=== PATIENT | female | born 1945 | race Hispanic/Latino ===

== ENCOUNTER 2016-08-31 08:24 | Outpatient (CLI) | payer MEDICARE ==
--- NOTE | 2016-08-31 13:05 | Mammography Report ---
BILATERAL DIGITAL SCREENING MAMMOGRAM with CAD: 08/31/16 08:24:00 CLINICAL: Routine screening. COMPARISON:07/08/15 FINDINGS: The breasts are heterogeneously dense, which may obscure small masses. A few bilateral benign calcifications. No mass, architectural distortion or suspicious calcifications. IMPRESSION: No mammographic evidence of malignancy. BI-RADS CATEGORY: 2 -- Benign RECOMMENDATION: Routine mammographic screening in one year. COMMENT: Patient follow-up letters are generated by our [employer] application.
== END 2016-08-31 08:25 | disposition home or self-care (01) ==
LOC: SPVWC 08:24
PROVIDERS: ATTEND Internal Medicine
DX: Z12.31 Encounter for screening mammogram for malignant neoplasm of breast (principal)
CPT/HCPCS: 77067; G0202

== ENCOUNTER 2019-04-10 09:46 | Outpatient (CLI) | payer MEDICARE ==
--- NOTE | 2019-04-13 14:05 | Mammography Report ---
DIGITAL SCREENING MAMMOGRAM WITH CAD, 04/10/2019 INDICATION: Routine screening mammography. TECHNIQUE: Digital bilateral 2D mammography was obtained in the craniocaudal and mediolateral obliq ue projections. This examination was interpreted with the benefit of Computer-Aided Detection analysi s. COMPARISON: 08/31/2016 and 07/08/2015 FINDINGS: Breast Density: There are scattered areas of fibroglandular density. A right upper inner focal asymmetry requires additional imaging. No architectural distortion or suspi cious calcifications. Scattered bilateral benign calcifications. There is no evidence of dominant mas s, suspicious calcifications or architectural distortion in the left breast. IMPRESSION: Right focal asymmetry requiring additional imaging. Recommend recall for right lateral an d spot compression MLO and CC views and right breast ultrasound if needed. Follow up recommendation: Special View: Spot Category 0: Incomplete. Needs additional imaging evaluation and/or prior mammograms for comparison. A "normal" or negative report should not discourage follow up or biopsy of a clinically significant f inding. A written summary of these findings will be mailed to the patient. The patient will be entered into a mammography reporting system which will generate a reminder letter for the patient's next appointmen t at the appropriate interval. The [employer] recommends yearly mammograms starting at age 40 and continuing as l juan jose as a woman is in good health. Breast MRI is recommended for women with an approximate 20-25% or greater lifetime risk of breast cancer, including women with a strong family history of breast or ova sylvia cancer or who have been treated for Hodgkin's disease. Signer Name: Omi Pablo MD Signed: 04/13/2019 2:01 PM Workstation Name: [id number]
== END 2019-04-10 09:47 | disposition home or self-care (01) ==
LOC: SPVWC 09:46
PROVIDERS: ATTEND Internal Medicine
DX: Z12.31 Encounter for screening mammogram for malignant neoplasm of breast (principal)
CPT/HCPCS: 77067

== ENCOUNTER 2019-05-07 08:16 | Outpatient (CLI) | payer MEDICARE ==
--- NOTE | 2019-05-07 10:50 | Mammography Report ---
RIGHT DIGITAL DIAGNOSTIC MAMMOGRAM WITH CAD 05/07/2019 RIGHT LIMITED BREAST ULTRASOUND INDICATION: Recalled for a right inner mammographic asymmetry. F/U abnormal mammogram TECHNIQUE: Digital right mammographic imaging was performed. Spot compression views were obtained. L imited ultrasound was performed. This examination was interpreted with the benefit of Computer-Aided Detection (CAD) analysis. COMPARISON: 04/10/2019 screening mammogram. FINDINGS: Breast Density: There are scattered areas of fibroglandular density. MAMMOGRAPHIC FINDINGS: Spot compression MLO and CC views demonstrate a persistent upper inner posteri or oval density with indistinct margins. It is not identified on the lateral view. ULTRASOUND FINDINGS: Targeted ultrasound evaluation was performed of the area of interest. Ultrasou nd of the right breast demonstrated a relatively anechoic skin lesion at 1:00 13 cm from the nipple m easuring 9 x 3 x 8 mm. The skin is mildly thickened at the site and the patient says that she occasio shiloh expresses material from it. The skin lesion correlates with the mammographic density. IMPRESSION: A benign 9 mm sebaceous cyst or epidermal inclusion cyst right breast at 1:00 13 cm from the nipple. Recommend routine mammographic screening. Follow up recommendation: Routine yearly BI-RADS Category 2: Benign. A "normal" or negative report should not discourage follow up or biopsy of a clinically significant f inding. A written summary of these findings will be mailed to the patient. The patient will be entered into a mammography reporting system which will generate a reminder letter for the patient's next appointmen t at the appropriate interval. According to the [employer], yearly mammograms are recommended starting at age 40 and continuing as long as a woman is in good health. Breast MRI is recommended for women with an richa roximately 20-25% or greater lifetime risk of breast cancer, including women with a strong family his tory of breast or ovarian cancer and women who have been treated for Hodgkin's disease. Signer Name: Omi Pablo MD Signed: 05/07/2019 10:45 AM Workstation Name: [id number]
== END 2019-05-07 08:17 | disposition home or self-care (01) ==
LOC: SPVWC 08:16
PROVIDERS: ATTEND Internal Medicine
DX: N60.01 Solitary cyst of right breast (principal); N64.89 Other specified disorders of breast

== ENCOUNTER 2019-06-18 20:58 | Observation (INO) | payer MEDICARE ==
--- NOTE | 2019-06-18 21:30 | Emergency Department Report ---
ED Neuro Deficit HPI - General Chief Complaint: Altered Mental Status Stated Complaint: AMS Time Seen by Provider: 06/18/19 21:09 Source: family, EMS Mode of arrival: Stretcher Limitations: Altered Mental Status - History of Present Illness Initial Comments: Patient is 73 years old female with history of borderline diabetes. Patient brought to the emergency room via EMS from home for evaluation of altered mental status. Patient accompanied by her son. Patient son stated that approximately 1-1/2 hours ago patient found on the floor confused and unable to stand up. Unknown time of onset. Upon arrival to the ER patient is alert but confused. Patient has obvious left lower extremity drift. Stroke protocol immediately initiated. Patient moved to CT scanner and telemetry neurology consulted immediately. -: Sudden Location: left leg, altered Presenting Symptoms: Present: Weak/Paralyzed One Side, Altered Mental Status History of same: No Place: home Severity: moderate Quality: weak Context: sudden onset - Related Data Allergies/Adverse Reactions: Allergies Allergy/AdvReac Type Severity Reaction Status Date / Time No Known Allergies Allergy Unverified 06/18/19 21:14 ED Review of Systems ROS: Stated complaint: AMS Other details as noted in HPI Comment: Unobtainable due to pts medical conditions ED Past Medical Hx - Past Medical History Previous Medical History?: Yes Hx Hypertension: Yes Hx Diabetes: Yes ED Neuro Physical Exam - General Limitations: Altered Mental Status General appearance: alert, in no apparent distress Suspected Stroke: Yes - Head Head exam: Present: atraumatic, normocephalic, normal inspection - Eye Eye exam: Present: normal appearance, PERRL - ENT ENT exam: Present: normal exam, normal orophraynx, mucous membranes moist - Neck Neck exam: Present: normal inspection, full ROM. Absent: tenderness, menin gismus, lymphadenopathy, thyromegaly - Respiratory Respiratory exam: Present: normal lung sounds bilaterally - Cardiovascular Cardiovascular Exam: Present: regular rate, normal rhythm, normal heart sounds - GI/Abdominal GI/Abdominal exam: Present: soft, normal bowel sounds. Absent: distended, tenderness, guarding, rebound, rigid, organomegaly, mass, bruit, pulsatile mass, hernia - Extremities Exam Extremities exam: Present: normal inspection, full ROM, normal capillary refill - Back Exam Back exam: Present: normal inspection, full ROM. Absent: CVA tenderness (R), CVA tenderness (L) - Neurological Exam Neurological exam: Present: alert, altered - NIHSS Assessment Interval: Baseline 1a. Level of Consciousness: alert/keenly responsive 1b. LOC Questions: answers no questions correctly 1c. LOC Commands: performs 1 task correctly 2. Best Gaze: partial gaze palsy 3. Visual: no visual loss 4. Facial Palsy: normal symmetrical movement 5b. Motor Arm Right: no drift 5a. Motor Arm Left: no drift 6a. Motor Leg Left: some gravity effort 6b. Motor Leg Right: some gravity effort 7. Limb Ataxia: absent 8. Sensory: normal 9. Best Language: no aphasia 10. Dysarthria: normal 11. Extinction/Inattention: no abnormality Total Score: 8 Stroke Severity: Moderate Stroke - Skin Skin exam: Present: warm, intact, normal color ED Course Vital Signs 06/18/19 06/18/19 06/18/19 21:05 21:16 21:33 Temperature 101.6 F H Pulse Rate 119 H 105 H Respiratory 21 Rate Blood Pressure 111/92 111/92 O2 Sat by Pulse 96 95 Oximetry 06/18/19 06/18/19 06/18/19 21:46 22:00 22:06 Temperature Pulse Rate 101 H 96 H 94 H Respiratory 15 16 11 L Rate Blood Pressure 142/54 166/82 111/92 O2 Sat by Pulse 95 94 94 Oximetry 06/18/19 06/18/19 06/18/19 22:16 22:30 22:46 Temperature Pulse Rate 95 H 75 76 Respiratory 21 12 24 Rate Blood Pressure 137/82 137/82 143/65 O2 Sat by Pulse 96 92 95 Oximetry 06/18/19 06/18/19 06/18/19 23:00 23:26 23:30 Temperature Pulse Rate 115 H Respiratory 15 Rate Blood Pressure 143/65 125/86 125/86 O2 Sat by Pulse 96 94 93 Oximetry 06/18/19 06/19/19 06/19/19 23:46 00:00 00:16 Temperature Pulse Rate Respiratory 14 15 19 Rate Blood Pressure 143/67 143/67 109/75 O2 Sat by Pulse 97 93 94 Oximetry - Lab Data Result diagrams: 06/18/19 21:39 06/18/19 21:39 Lab Results 06/18/19 06/18/19 06/18/19 Range/Units 21:39 21:39 21:39 WBC 14.6 H (4.5-11.0) K/mm3 RBC 4.63 (3.65-5.03) M/mm3 Hgb 14.8 H (10.1-14.3) gm/dl Hct 43.7 H (30.3-42.9) % MCV 94 (79-97) fl MCH 32 (28-32) pg MCHC 34 (30-34) % RDW 12.7 L (13.2-15.2) % Plt Count 258 (140-440) K/mm3 Add Manual Diff Complete Total Counted 100 Seg Neutrophils % Family Physician Seg Neuts % (Manual) 95.0 H (40.0-70.0) % Band Neutrophils % 0 % Lymphocytes % (Manual) 4.0 L (13.4-35.0) % Reactive Lymphs % (Man) 0 % Monocytes % (Manual) 1.0 (0.0-7.3) % Eosinophils % (Manual) 0 (0.0-4.3) % Basophils % (Manual) 0 (0.0-1.8) % Metamyelocytes % 0 % Myelocytes % 0 % Promyelocytes % 0 % Blast Cells % 0 % Nucleated RBC % Not Reportable Seg Neutrophils # Man 13.9 H (1.8-7.7) K/mm3 Band Neutrophils # 0.0 K/mm3 Lymphocytes # (Manual) 0.6 L (1.2-5.4) K/mm3 Abs React Lymphs (Man) 0.0 K/mm3 Monocytes # (Manual) 0.1 (0.0-0.8) K/mm3 Eosinophils # (Manual) 0.0 (0.0-0.4) K/mm3 Basophils # (Manual) 0.0 (0.0-0.1) K/mm3 Metamyelocytes # 0.0 K/mm3 Myelocytes # 0.0 K/mm3 Promyelocytes # 0.0 K/mm3 Blast Cells # 0.0 K/mm3 WBC Morphology Not Reportable Hypersegmented Neuts Not Reportable Hyposegmented Neuts Not Reportable Hypogranular Neuts Not Reportable Smudge Cells Not Reportable Toxic Granulation Not Reportable Toxic Vacuolation Not Reportable Dohle Bodies Not Reportable Pelger-Huet Anomaly Not Reportable John Rods Not Reportable Platelet Estimate Consistent w auto Clumped Platelets Not Reportable Plt Clumps, EDTA Not Reportable Large Platelets Not Reportable Giant Platelets Not Reportable Platelet Satelliting Not Reportable Plt Morphology Comment Not Reportable RBC Morphology Normal Dimorphic RBCs Not Reportable Polychromasia Not Reportable Hypochromasia Not Reportable Poikilocytosis Not Reportable Anisocytosis Not Reportable Microcytosis Not Reportable Macrocytosis Not Reportable Spherocytes Not Reportable Pappenheimer Bodies Not Reportable Sickle Cells Not Reportable Target Cells Not Reportable Tear Drop Cells Not Reportable Ovalocytes Not Reportable Helmet Cells Not Reportable [place] Bodies Not Reportable [place] Rings Not Reportable [place] Cells Not Reportable Bite Cells Not Reportable Crenated Cell Not Reportable Elliptocytes Not Reportable Acanthocytes (Spur) Not Reportable Rouleaux Not Reportable Hemoglobin C Crystals Not Reportable Schistocytes Not Reportable Malaria parasites Not Reportable Justino Bodies Not Reportable Hem Pathologist Commnt No PT 13.4 (12.2-14.9) Sec. INR 1.01 (0.87-1.13) APTT 27.9 (24.2-36.6) Sec. Thrombin Time 16.1 (15.1-19.6) Sec. Sodium 136 L (137-145) mmol/L Potassium 3.6 (3.6-5.0) mmol/L Chloride 90.6 L (98-107) mmol/L Carbon Dioxide 23 (22-30) mmol/L Anion Gap 26 mmol/L BUN 15 (7-17) mg/dL Creatinine 0.6 L (0.7-1.2) mg/dL Estimated GFR > 60 ml/min BUN/Creatinine Ratio 25 % Glucose 254 H (65-100) mg/dL POC Glucose (70-105) Calcium 9.7 (8.4-10.2) mg/dL Total Creatine Kinase 63 (30-135) units/L CK-MB (CK-2) 1.4 (0.0-4.0) ng/mL CK-MB (CK-2) Rel Index 2.2 (0-4) Troponin T < 0.010 (0.00-0.029) ng/mL Urine Color (Yellow) Urine Turbidity (Clear) Urine pH (5.0-7.0) Ur Specific [place] (1.003-1.030) Urine Protein (Negative) mg/dL Urine Glucose (UA) (Negative) mg/dL Urine Ketones (Negative) mg/dL Urine Blood (Negative) Urine Nitrite (Negative) Urine Bilirubin (Negative) Urine Urobilinogen (<2.0) mg/dL Ur Leukocyte Esterase (Negative) Urine WBC (Auto) (0.0-6.0) /HPF Urine RBC (Auto) (0.0-6.0) /HPF Urine Opiates Screen Urine Methadone Screen Ur Barbiturates Screen Ur Phencyclidine Scrn Ur Amphetamines Screen U Benzodiazepines Scrn Urine Cocaine Screen U Marijuana (THC) Screen Drugs of Abuse Note Plasma/Serum Alcohol (0-0.07) % 06/18/19 06/18/19 06/18/19 Range/Units 21:39 22:17 22:23 WBC (4.5-11.0) K/mm3 RBC (3.65-5.03) M/mm3 Hgb (10.1-14.3) gm/dl Hct (30.3-42.9) % MCV (79-97) fl MCH (28-32) pg MCHC (30-34) % RDW (13.2-15.2) % Plt Count (140-440) K/mm3 Add Manual Diff Total Counted Seg Neutrophils % Seg Neuts % (Manual) (40.0-70.0) % Band Neutrophils % % Lymphocytes % (Manual) (13.4-35.0) % Reactive Lymphs % (Man) % Monocytes % (Manual) (0.0-7.3) % Eosinophils % (Manual) (0.0-4.3) % Basophils % (Manual) (0.0-1.8) % Metamyelocytes % % Myelocytes % % Promyelocytes % % Blast Cells % % Nucleated RBC % Seg Neutrophils # Man (1.8-7.7) K/mm3 Band Neutrophils # K/mm3 Lymphocytes # (Manual) (1.2-5.4) K/mm3 Abs React Lymphs (Man) K/mm3 Monocytes # (Manual) (0.0-0.8) K/mm3 Eosinophils # (Manual) (0.0-0.4) K/mm3 Basophils # (Manual) (0.0-0.1) K/mm3 Metamyelocytes # K/mm3 Myelocytes # K/mm3 Promyelocytes # K/mm3 Blast Cells # K/mm3 WBC Morphology Hypersegmented Neuts Hyposegmented Neuts Hypogranular Neuts Smudge Cells Toxic Granulation Toxic Vacuolation Dohle Bodies Pelger-Huet Anomaly John Rods Platelet Estimate Clumped Platelets Plt Clumps, EDTA Large Platelets Giant Platelets Platelet Satelliting Plt Morphology Comment RBC Morphology Dimorphic RBCs Polychromasia Hypochromasia Poikilocytosis Anisocytosis Microcytosis Macrocytosis Spherocytes Pappenheimer Bodies Sickle Cells Target Cells Tear Drop Cells Ovalocytes Helmet Cells Darby-[place] Bodies [place] Rings Fabiana Cells Bite Cells Crenated Cell Elliptocytes Acanthocytes (Spur) Rouleaux Hemoglobin C Crystals Schistocytes Malaria parasites Justino Bodies Hem Pathologist Commnt PT (12.2-14.9) Sec. INR (0.87-1.13) APTT (24.2-36.6) Sec. Thrombin Time (15.1-19.6) Sec. Sodium (137-145) mmol/L Potassium (3.6-5.0) mmol/L Chloride (98-107) mmol/L Carbon Dioxide (22-30) mmol/L Anion Gap mmol/L BUN (7-17) mg/dL Creatinine (0.7-1.2) mg/dL Estimated GFR ml/min BUN/Creatinine Ratio % Glucose (65-100) mg/dL POC Glucose 219 H (70-105) Calcium (8.4-10.2) mg/dL Total Creatine Kinase (30-135) units/L CK-MB (CK-2) (0.0-4.0) ng/mL CK-MB (CK-2) Rel Index (0-4) Troponin T (0.00-0.029) ng/mL Urine Color Straw (Yellow) Urine Turbidity Clear (Clear) Urine pH 7.0 (5.0-7.0) Ur Specific [place] 1.014 (1.003-1.030) Urine Protein 100 mg/dl (Negative) mg/dL Urine Glucose (UA) >=500 (Negative) mg/dL Urine Ketones 80 (Negative) mg/dL Urine Blood Sm (Negative) Urine Nitrite Neg (Negative) Urine Bilirubin Neg (Negative) Urine Urobilinogen < 2.0 (<2.0) mg/dL Ur Leukocyte Esterase Neg (Negative) Urine WBC (Auto) 1.0 (0.0-6.0) /HPF Urine RBC (Auto) 9.0 (0.0-6.0) /HPF Urine Opiates Screen Urine Methadone Screen Ur Barbiturates Screen Ur Phencyclidine Scrn Ur Amphetamines Screen U Benzodiazepines Scrn Urine Cocaine Screen U Marijuana (THC) Screen Drugs of Abuse Note Plasma/Serum Alcohol < 0.01 (0-0.07) % 06/18/19 Range/Units 22:23 WBC (4.5-11.0) K/mm3 RBC (3.65-5.03) M/mm3 Hgb (10.1-14.3) gm/dl Hct (30.3-42.9) % MCV (79-97) fl MCH (28-32) pg MCHC (30-34) % RDW (13.2-15.2) % Plt Count (140-440) K/mm3 Add Manual Diff Total Counted Seg Neutrophils % Seg Neuts % (Manual) (40.0-70.0) % Band Neutrophils % % Lymphocytes % (Manual) (13.4-35.0) % Reactive Lymphs % (Man) % Monocytes % (Manual) (0.0-7.3) % Eosinophils % (Manual) (0.0-4.3) % Basophils % (Manual) (0.0-1.8) % Metamyelocytes % % Myelocytes % % Promyelocytes % % Blast Cells % % Nucleated RBC % Seg Neutrophils # Man (1.8-7.7) K/mm3 Band Neutrophils # K/mm3 Lymphocytes # (Manual) (1.2-5.4) K/mm3 Abs React Lymphs (Man) K/mm3 Monocytes # (Manual) (0.0-0.8) K/mm3 Eosinophils # (Manual) (0.0-0.4) K/mm3 Basophils # (Manual) (0.0-0.1) K/mm3 Metamyelocytes # K/mm3 Myelocytes # K/mm3 Promyelocytes # K/mm3 Blast Cells # K/mm3 WBC Morphology Hypersegmented Neuts Hyposegmented Neuts Hypogranular Neuts Smudge Cells Toxic Granulation Toxic Vacuolation Dohle Bodies Pelger-Huet Anomaly John Rods Platelet Estimate Clumped Platelets Plt Clumps, EDTA Large Platelets Giant Platelets Platelet Satelliting Plt Morphology Comment RBC Morphology Dimorphic RBCs Polychromasia Hypochromasia Poikilocytosis Anisocytosis Microcytosis Macrocytosis Spherocytes Pappenheimer Bodies Sickle Cells Target Cells Tear Drop Cells Ovalocytes Helmet Cells Darby-[place] Bodies [place] Rings [place] Cells Bite Cells Crenated Cell Elliptocytes Acanthocytes (Spur) Rouleaux Hemoglobin C Crystals Schistocytes Malaria parasites Justino Bodies Hem Pathologist Commnt PT (12.2-14.9) Sec. INR (0.87-1.13) APTT (24.2-36.6) Sec. Thrombin Time (15.1-19.6) Sec. Sodium (137-145) mmol/L Potassium (3.6-5.0) mmol/L Chloride (98-107) mmol/L Carbon Dioxide (22-30) mmol/L Anion Gap mmol/L BUN (7-17) mg/dL Creatinine (0.7-1.2) mg/dL Estimated GFR ml/min BUN/Creatinine Ratio % Glucose (65-100) mg/dL POC Glucose (70-105) Calcium (8.4-10.2) mg/dL Total Creatine Kinase (30-135) units/L CK-MB (CK-2) (0.0-4.0) ng/mL CK-MB (CK-2) Rel Index (0-4) Troponin T (0.00-0.029) ng/mL Urine Color (Yellow) Urine Turbidity (Clear) Urine pH (5.0-7.0) Ur Specific [place] (1.003-1.030) Urine Protein (Negative) mg/dL Urine Glucose (UA) (Negative) mg/dL Urine Ketones (Negative) mg/dL Urine Blood (Negative) Urine Nitrite (Negative) Urine Bilirubin (Negative) Urine Urobilinogen (<2.0) mg/dL Ur Leukocyte Esterase (Negative) Urine WBC (Auto) (0.0-6.0) /HPF Urine RBC (Auto) (0.0-6.0) /HPF Urine Opiates Screen Presumptive negative Urine Methadone Screen Presumptive negative Ur Barbiturates Screen Presumptive negative Ur Phencyclidine Scrn Presumptive negative Ur Amphetamines Screen Presumptive negative U Benzodiazepines Scrn Presumptive negative Urine Cocaine Screen Presumptive negative U Marijuana (THC) Screen Presumptive negative Drugs of Abuse Note Disclamer Plasma/Serum Alcohol (0-0.07) % - EKG Data -: EKG Interpreted by [place] EKG shows normal: sinus rhythm Rate: normal Interpretation: no acute changes - Radiology Data Radiology results: report reviewed - Medical Decision Making Patient is 73 years old female with history of borderline diabetes. Patient brought to the emergency room via EMS from home for evaluation of altered mental status. Patient accompanied by her son. Patient son stated that approximately 1-1/2 hours ago patient found on the floor confused and unable to stand up. Unknown time of onset. Upon arrival to the ER patient is alert but confused. Patient has obvious left lower extremity drift. Stroke protocol immediately initiated. Patient moved to CT scanner and telemetry neurology consulted immediately. CT brain is negative for acute finding. Patient is not a TPA candidate secondary to unknown time of onset. CTA neck and head showed no evidence of l arge vessels occlusion. Dr. Montoya from tele-neurology, advised that patient need to be admitted to the hospital for stroke work-up and further management. I discussed the patient with Dr. Ni, he agreed to admit the patient to medical service for further management. Critical Care Time: Yes Critical care time in (mins) excluding proc time.: 30 Critical care attestation.: If time is entered above; I have spent that time in minutes in the direct care of this critically ill patient, excluding procedure time. ED Disposition Clinical Impression: Left leg weakness, CVA (cerebral vascular accident) Disposition: -09 OP ADMIT IP TO THIS HOSP Is pt being admited?: Yes Condition: Stable Referrals: PRIMARY CARE, [Primary Care Provider] - 3-5 Days
--- NOTE | 2019-06-18 21:42 | Emergency Department Report ---
ED Neuro Deficit HPI - General Chief Complaint: Altered Mental Status Stated Complaint: AMS Time Seen by Provider: 06/18/19 21:09 Source: family, EMS Mode of arrival: Stretcher Limitations: Altered Mental Status - History of Present Illness Initial Comments: [facility] Date of Service: 06/18/2019 21:22:01 Impression: RO Acute Ischemic Stroke Comments: acute onset confusion, right gaze preference, and left leg weakness - concerning for R hemisphere stroke, though exam is poor due to confusion/delirium, which would not be accounted for by a stroke. Recommend CTA head/neck. Outside tpa window. Mechanism of Stroke: Possible Thromboembolic Possible Cardioembolic Small Vessel Disease Metrics: Last Known Well: Unknown [facility] Notification Time: 06/18/2019 21:21:34 Arrival Time: 06/18/2019 20:58:00 Stamp Time: 06/18/2019 21:22:01 Time First Login Attempt: 06/18/2019 21:29:55 Video Start Time: 06/18/2019 21:29:55 Symptoms: AMS NIHSS Start Assessment Time: 06/18/2019 21:35:05 Patient is not a candidate for tPA. Patient was not deemed candidate for tPA thrombolytics because of Last Well Known Above 4.5 Hours. Video End Time: 06/18/2019 21:40:04 CT head showed no acute hemorrhage or acute core infarct. CT head was reviewed. Lower Likelihood of Large Vessel Occlusion but Following Stat Studies are Recommended CTA Head and Neck. ED Physician notified of diagnostic impression and management plan on 06/18/2019 21:40:03 Our recommendations are outlined below. Recommendations: Activate Stroke Protocol Admission/Order Set Stroke/Telemetry Floor Neuro Checks Bedside Swallow Eval DVT Prophylaxis IV Fluids, Normal Saline Head of Bed Below 30 Degrees Euglycemia and Avoid Hyperthermia (PRN Acetaminophen) start ASA if CT head is neg for hemorrhage. Recommended Scan: MRI Head Lipid Panel to Be Obtained, if Not Done in the Last Three Months Therapies: Physical Therapy, Occupational Therapy, Speech Therapy Assessment When Applicable Dysphaghia Screen: Swallow Evaluation, Bedside NPO Until Swallow Evaluation DVT prophylaxis: Lovenox or LMW Heparin Disposition: Follow up with Teleneurology Follow up Sign Out: Discussed with Emergency Department Provider History of Present Illness: Patient is a 73 year old Female. Patient was brought by EMS for symptoms of AMS 73 yo woman with acute onset confusion and AMS. This was noted today during lunch at her christianity. No LOC/convulsion noted. Unclear LSN time. ?L sided weakness noted by the ED. No blood thinners. CT head showed no acute hemorrhage or acute core infarct. CT head was reviewed. Examination: 1A: Level of Consciousness - Alert; keenly responsive + 0 1B: Ask Month and Age - Both Questions Right + 0 1C: Blink Eyes & Squeeze Hands - Performs Both Tasks + 0 2: Test Horizontal Extraocular Movements - Partial Gaze Palsy: Can Be Overcome + 1 3: Test Visual Pierce - No Visual Loss + 0 4: Test Facial Palsy (Use Grimace if Obtunded) - Normal symmetry + 0 5A: Test Left Arm Motor Drift - No Drift for 10 Seconds + 0 5B: Test Right Arm Motor Drift - No Drift for 10 Seconds + 0 6A: Test Left Leg Motor Drift - Some Effort Against Montgomery + 2 6B: Test Right Leg Motor Drift - Some Effort Against Montgomery + 2 7: Test Limb Ataxia (FNF/Heel-Orr) - No Ataxia + 0 8: Test Sensation - Normal; No sensory loss + 0 9: Test Language/Aphasia - Severe Aphasia: Fragmentary Expression, Inference Needed, Cannot Identify Materials + 2 10: Test Dysarthria - Normal + 0 11: Test Extinction/Inattention - No abnormality + 0 NIHSS Score: 7 Patient was informed the Neurology Consult would happen via TeleHealth consult by way of interactive audio and video telecommunications and consented to receiving care in this manner. Due to the immediate potential for life-threatening deterioration due to underlying acute neurologic illness, I spent 35 minutes providing critical care. This time includes time for face to face visit via telemedicine, review of medical records, imaging studies and discussion of findings with providers, the patient and/or family. Dr Johnathan Putnam [facility] Case [id number] Location: left leg, altered History of same: No Place: home Severity: moderate Quality: weak - Related Data Allergies/Adverse Reactions: Allergies Allergy/AdvReac Type Severity Reaction Status Date / Time No Known Allergies Allergy Unverified 06/18/19 21:14 ED Review of Systems ROS: Stated complaint: AMS Other details as noted in HPI ED Past Medical Hx - Past Medical History Previous Medical History?: Yes Hx Hypertension: Yes Hx Diabetes: Yes ED Neuro Physical Exam - General Limitations: Altered Mental Status General appearance: alert, in no apparent distress Suspected Stroke: Yes - NIHSS Assessment Interval: Baseline 1a. Level of Consciousness: alert/keenly responsive 1b. LOC Questions: answers no questions correctly 1c. LOC Commands: performs 1 task correctly 2. Best Gaze: partial gaze palsy 3. Visual: no visual loss 4. Facial Palsy: normal symmetrical movement 5b. Motor Arm Right: drift 5a. Motor Arm Left: drift 6a. Motor Leg Left: some gravity effort 6b. Motor Leg Right: some gravity effort 7. Limb Ataxia: absent 8. Sensory: normal 9. Best Language: severe aphasia 10. Dysarthria: severe dysarthria 11. Extinction/Inattention: no abnormality Total Score: 14 Stroke Severity: Moderate Stroke ED Course Vital Signs 06/18/19 06/18/19 21:05 21:16 Pulse Rate 119 H Respiratory 21 Rate Blood Pressure 111/92 O2 Sat by Pulse 96 95 Oximetry Critical care attestation.: If time is entered above; I have spent that time in minutes in the direct care of this critically ill patient, excluding procedure time. ED Disposition Clinical Impression: Left leg weakness Disposition: -09 OP ADMIT IP TO THIS HOSP Is pt being admited?: Yes Condition: Stable Referrals: PRIMARY CARE, [Primary Care Provider] - 3-5 Days
[2019-06-18 22:01] LABS: Hematocrit 43.7 % (30.3-42.9); Hemoglobin 14.8 gm/dl (10.1-14.3); Mean Corpuscular HGB Conc 34 % (30-34); Mean Corpuscular Volume 94 fl (79-97); Platelet Count 258 K/mm3 (140-440); Red Blood Count 4.63 M/mm3 (3.65-5.03); Red Cell Distribution Width 12.7 % (13.2-15.2)
--- NOTE | 2019-06-18 22:01 | Cat Scan Report ---
CT BRAIN: 06/18/2019 INDICATION / CLINICAL INFORMATION: Stroke symptoms. COMPARISON: None available. FINDINGS: BRAIN/INTRACRANIAL STRUCTURES: Unenhanced CT images of the brain were obtained. No previous studies a re available here for comparison. There is no evidence of acute abnormality. Ventricles and sulci are prominent in size, consistent wit h age-related atrophic change. There is no evidence of acute large vessel territory ischemic injury, hemorrhage, or mass. Chronic la cunar changes are present in the left putamen and left frontal periventricular white matter. EXTRACRANIAL STRUCTURES: Unremarkable. IMPRESSION: No acute abnormality. Chronic and age-related changes. All CT scans at this location are performed using dose reduction to ALARA by means of automated expos ure control. Signer Name: Jakub Galvan MD Signed: 06/18/2019 9:57 PM Workstation Name: [id number]
[2019-06-18 22:29] LABS: Creatine Kinase MB 1.4 ng/mL (0.0-4.0)
[2019-06-18 22:34] LABS: BUN/Creatinine Ratio 25; Blood Urea Nitrogen 15 mg/dL (7-17); Calcium 9.7 mg/dL (8.4-10.2); Hemolysis Index 12
[2019-06-18 22:50] LABS: Basophils % (Manual) 0 % (0.0-1.8); Eosinophils % (Manual) 0 % (0.0-4.3); INR 1.01 (0.87-1.13); Total Cells Counted 100
[2019-06-18 22:51] LABS: Partial Thromboplastin Time 27.9 Sec. (24.2-36.6); Platelet Estimate Consistent w Auto; RBC Morphology Normal
[2019-06-18 22:52] LABS: Thrombin Time 16.1 Sec. (15.1-19.6)
[2019-06-18 23:10] LABS: Bilirubin,Urine NEG (Negative); Blood,Urine SM (Negative); Color,Urine Straw (Yellow); Urobilinogen,Urine < 2.0 mg/dL (<2.0)
[2019-06-18 23:16] LABS: Amphetamine Screen,Urine PRESUMPTIVE NEGATIVE; Benzodiazepines Screen,Urine PRESUMPTIVE NEGATIVE; Cannabinoid Screen,Urine PRESUMPTIVE NEGATIVE; Cocaine Screen,Urine PRESUMPTIVE NEGATIVE; Methadone Screen,Urine PRESUMPTIVE NEGATIVE; Opiate Screen,Urine PRESUMPTIVE NEGATIVE
[2019-06-19] MEDS ORDERED: LORazepam 2 MG/ML VIAL ONE (00:08)
[2019-06-19] MEDS ORDERED: LORazepam 2 MG/ML VIAL IV ONE (00:17)
--- NOTE | 2019-06-19 00:18 | Cat Scan Report ---
NECK MR ANGIOGRAM 06/18/2019 HISTORY: 73-year-old with altered mental status FINDINGS: Contrast-enhanced CT angiographic images of the neck were obtained. In addition to the axia l images, sagittal and coronal reformatted images were obtained. In addition, 3 plane MIP reconstruct ions were produced. NASCET like criteria were used in this evaluation. There is no CT angiographic correlate for altered mental status. The right bifurcation, atherosclerotic vascular calcification is present, with no evidence of signifi cant stenosis. On the left, atherosclerotic vascular calcification is present with no evidence of stenosis. Vertebral artery contours are unremarkable. Visualized portion of the aortic arch is unremarkable. IMPRESSION: No evidence of carotid bifurcation stenosis. There is no neck CT angiographic correlate for "altered mental status". All CT scans at this location are performed using dose reduction to ALARA by means of automated expos ure control. Signer Name: Jakub Galvan MD Signed: 06/19/2019 12:14 AM Workstation Name: [id number]
--- NOTE | 2019-06-19 00:21 | Cat Scan Report ---
HEAD MR ANGIOGRAM 06/18/2019 HISTORY: 73-year-old with altered mental status FINDINGS: Contrast-enhanced CT angiographic images of the intracranial circulation were obtained. In addition to the axial images, sagittal and coronal reformatted images were obtained. In addition, 3 p manjula MIP reconstructions were produced. There is no head CT angiographic correlate for altered mental status. There is normal vascular contours and anterior and posterior circulation vessels. There is no evidenc e of vessel occlusion or stenosis. There is no evidence of aneurysm. IMPRESSION: No significant abnormality. There is no head CT angiographic correlate for "altered mental status". All CT scans at this location are performed using dose reduction to ALARA by means of automated expos ure control. Signer Name: Jakub Galvan MD Signed: 06/19/2019 12:17 AM Workstation Name: [id number]
[2019-06-19] MEDS ORDERED: ASPIRIN 81 MG TAB CHEW PO ONE (00:49)
[2019-06-19] MEDS ORDERED: ASPIRIN 81 MG TAB CHEW ONE (02:32)
[2019-06-19] MEDS ORDERED: SODIUM CHLORIDE 0.9% 1000 ML 1,000 ML ONE (02:32)
[2019-06-19] MEDS: SODIUM CHLORIDE 0.9% 1000 ML 1,000 ML IV ONE ×2 (02:58→03:30)
[2019-06-19] MEDS ORDERED: METOCLOPRAMIDE 10 MG TAB PO PRN (03:17)
[2019-06-19] MEDS ORDERED: DEXTROSE 50% IN WATER (25GM) 50 ML SYRINGE IV PRN (03:17)
[2019-06-19] MEDS ORDERED: MAGNESIUM HYDROXIDE (MOM) ORAL LIQD UDC PO PRN (03:17)
[2019-06-19] MEDS ORDERED: ACETAMINOPHEN 325 MG TAB PO PRN ×2 (03:17)
[2019-06-19] MEDS ORDERED: PROMETHAZINE 25 MG RECT SUPP PR PRN (03:17)
[2019-06-19] MEDS ORDERED: ONDANSETRON 4 MG/2 ML INJ IV PRN ×2 (03:17)
--- NOTE | 2019-06-19 03:47 | History and Physical Report ---
History of Present Illness Date of examination: 06/19/19 Date of admission: 06/19/19 00:51 Chief complaint: Altered Mental Status History of present illness: 73-year-old female with significant history of borderline diabetes mellitus brought into the emergency room today by EMS because of changes in mental status. Patient was said to have been found on the floor in the bathroom and was said to be unable to stand up. She was found to be confused but alert. She was also found to have a left lower extremity weakness. Patient was accompanied by son to the emergency room patient was unable to give any good history. According to son there has been no history of fever or chills, no chest pain or shortness of breath, no nausea vomiting, no headache or dizziness. Patient was evaluated by the teleneurologist, was recommended that patient be admitted for further work-up for CVA. CT scan of the head so far has been negative. Past History Past Medical History: diabetes, hypertension Past Surgical History: No surgical history Social history: no significant social history Family history: no significant family history Medications and Allergies Allergies Allergy/AdvReac Type Severity Reaction Status Date / Time No Known Allergies Allergy Unverified 06/18/19 21:14 Home Medications Medication Instructions Recorded Confirmed Last Taken Type Furosemide [Lasix TAB] 20 mg PO DAILY 06/19/19 06/19/19 Unknown History Omeprazole 20 mg PO DAILY 06/19/19 06/19/19 Unknown History Simvastatin 40 mg PO DAILY 06/19/19 06/19/19 Unknown History Active Meds: Active Medications Acetaminophen (Tylenol) 650 mg PO Q4H PRN PRN Reason: Pain MILD(1-3)/Fever >100.5/MAC Aspirin (Aspirin) 325 mg PO QDAY KAYLA Bisacodyl (Dulcolax) 10 mg WV QDAY PRN PRN Reason: Constipation Dextrose (D50w (25gm) Syringe) 50 ml IV Q30MIN PRN; Protocol PRN Reason: Hypoglycemia Sodium Chloride (Nacl 0.9% 1000 Ml) 1,000 mls @ 250 mls/hr IV ONCE ONE Stop: 06/19/19 04:48 Last Admin: 06/19/19 02:58 Dose: 250 mls/hr Documented by: Insulin Human Lispro (Humalog) 0 unit SUB-Q ACHS KAYLA; Protocol Magnesium Hydroxide (Milk Of Magnesia) 30 ml PO Q4H PRN PRN Reason: Constipation Metoclopramide HCl (Reglan) 10 mg PO Q6H PRN PRN Reason: Nausea And Vomiting Ondansetron HCl (Zofran) 4 mg IV Q8H PRN PRN Reason: Nausea And Vomiting Promethazine HCl (Phenergan) 25 mg WV Q6H PRN PRN Reason: Nausea And Vomiting Sodium Chloride (Sodium Chloride Flush Syringe 10 Ml) 10 ml IV BID KAYLA Sodium Chloride (Sodium Chloride Flush Syringe 10 Ml) 10 ml IV PRN PRN PRN Reason: LINE FLUSH Review of Systems ROS unobtainable: due to mental status Exam - Constitutional Vitals: Temp Pulse Resp BP Pulse Ox 101.6 F H 115 H 17 108/42 95 06/18/19 21:16 06/18/19 23:00 06/19/19 02:45 06/19/19 02:45 06/19/19 02:45 General appearance: Present: no acute distress, mild distress, well-nourished - EENT Eyes: Present: PERRL, EOM intact ENT: hearing intact, clear oral mucosa, dentition normal - Neck Neck: Present: supple, normal ROM - Respiratory Respiratory effort: normal Respiratory: bilateral: CTA - Cardiovascular Rhythm: regular Heart Sounds: Present: S1 & S2 - Extremities Extremities: no ischemia, pulses intact, No edema, Full ROM Peripheral Pulses: within normal limits - Abdominal General gastrointestinal: Present: soft, non-tender, non-distended - Integumentary Integumentary: Present: clear, warm, dry - Musculoskeletal Musculoskeletal: strength equal bilaterally - Psychiatric Psychiatric: appropriate mood/affect, cooperative, other (Patient appears confused) - Neurologic Neurologic: CNII-XII intact, moves all extremities Results - Labs CBC & Chem 7: 06/18/19 21:39 06/18/19 21:39 Labs: Abnormal lab results 06/18/19 06/18/19 06/18/19 Range/Units 21:39 21:39 22:17 WBC 14.6 H (4.5-11.0) K/mm3 Hgb 14.8 H (10.1-14.3) gm/dl Hct 43.7 H (30.3-42.9) % RDW 12.7 L (13.2-15.2) % Seg Neuts % (Manual) 95.0 H (40.0-70.0) % Lymphocytes % (Manual) 4.0 L (13.4-35.0) % Seg Neutrophils # Man 13.9 H (1.8-7.7) K/mm3 Lymphocytes # (Manual) 0.6 L (1.2-5.4) K/mm3 Sodium 136 L (137-145) mmol/L Chloride 90.6 L (98-107) mmol/L Creatinine 0.6 L (0.7-1.2) mg/dL Glucose 254 H (65-100) mg/dL POC Glucose 219 H (70-105) Assessment and Plan - Patient Problems (1) CVA (cerebral vascular accident) Current Visit: Yes Status: Acute Plan to address problem: Patient admitted and placed on daily aspirin. Will monitor mental status. Patient will be scheduled for MRI of the brain. We will await further evaluation and recommendation from neurologist. (2) Hypertension Current Visit: Yes Status: Acute Plan to address problem: Blood pressure stable. Continue routine home medications., (3) DVT prophylaxis Current Visit: Yes Status: Acute Plan to address problem: Patient placed on subcutaneous heparin. (4) Full code status Current Visit: Yes Status: Acute
[2019-06-19] MEDS: INSULIN LISPRO 100 UNIT/ML SUB-Q SCH ×4 (07:30→22:12)
[2019-06-19] MEDS ORDERED: ASPIRIN 325 MG TAB PO SCH (10:00)
--- NOTE | 2019-06-19 12:11 | Vascular Lab Report ---
BILATERAL CAROTID DOPPLER ULTRASOUND INDICATION : stroke TECHNIQUE: Grayscale and color Doppler imaging performed through the neck. COMPARISON: None FINDINGS: Right: There is mild scattered calcific plaques in the CCA and carotid bifurcation. Peak systolic v elocity in the CCA is 83 cm/s with end-diastolic velocity of 13 cm/s. Peak systolic velocity in the p roximal ICA is 72 cm/s with end-diastolic velocity of 10 cm/s. ICA to CCA ratio is less than 2. There is antegrade flow in the ECA and the vertebral artery. Velocities are elevated in the proximal righ t ECA measuring 329 cm/s. Left: There is mild calcific plaques in the carotid bulb. Peak systolic velocity in the CCA is 91 cm/ s with end-diastolic velocity of 17 cm/s. Peak systolic velocity in the proximal ICA is 97 cm/s with end-diastolic velocity of 14 cm/s. ICA to CCA ratio is less than 2. There is antegrade flow in the E CA and the vertebral artery. IMPRESSION: No hemodynamically significant stenosis in the bilateral ICAs by NASCET criteria. There is less than 50% luminal narrowing bilaterally. Elevated velocities in the right ECA correlate with 50-79% stenosis. Signer Name: Idris Brown Jr, MD Signed: 06/19/2019 12:06 PM Workstation Name: [id number]
[2019-06-19] MEDS: FUROSEMIDE 20 MG TAB PO SCH (13:32)
[2019-06-19] MEDS: PANTOPRAZOLE 20 MG TAB PO SCH (13:32)
--- NOTE | 2019-06-19 15:08 | Magnetic Resonance Report ---
MRI BRAIN WITHOUT CONTRAST INDICATION / CLINICAL INFORMATION: stroke. Weakness. TECHNIQUE: Multiplanar, multisequence MR images of the brain were obtained. COMPARISON: Head CT 06/18/2019 FINDINGS: BRAIN / INTRACRANIAL CONTENTS: Ventricles and cortical sulci are normal in size and configuration giv en the patient's age of 73 years. There is no mass effect. No evidence of intracranial hemorrhage or extra-axial fluid collection is seen. Scattered foci and confluent periventricular white matter hyper intensities are observed in both cerebral hemispheres. There is evidence of remote small deep infarct ions in the left gangliocapsular region. No additional areas of abnormal brain parenchymal signal int ensity are identified. There is no indication of remote cortical infarction. Diffusion weighted scans are negative. There is no indication of acute ischemic injury. The brainstem and cerebellum have an unremarkable appearance. CRANIOCERVICAL JUNCTION: No abnormalities are identified at the craniocervical junction. VASCULAR FLOW-VOIDS: Normal flow-voids are present within the major intracranial vessels. ORBITS: Patient is status post bilateral cataract surgery. Orbits have an otherwise unremarkable appe arance. SINUSES / MASTOIDS: Inflammatory mucosal changes are present in the sphenoid sinuses bilaterally, rig ht than left. Paranasal sinuses and mastoid air cells are otherwise free from inflammatory mucosal di sease. ADDITIONAL FINDINGS: None. IMPRESSION: 1. Age-appropriate parenchymal volume loss and microvascular ischemic change. 2. Remote small deep infarctions left gangliocapsular regions. 3. No acute intracranial abnormality. Signer Name: Isreal Stephens MD Signed: 06/19/2019 3:03 PM Workstation Name: [id number]
--- NOTE | 2019-06-19 15:54 | Event Note ---
Date: 06/19/19 Patient seen and examined c/o rightsided weakness, getting PT eval MRI pending, neuro eval pending cont current mx and plan
[2019-06-19 16:03] LABS: Hematocrit 38.9 % (30.3-42.9); Hemoglobin 13.5 gm/dl (10.1-14.3); Mean Corpuscular HGB Conc 35 % (30-34); Mean Corpuscular Volume 94 fl (79-97); Platelet Count 260 K/mm3 (140-440); Red Blood Count 4.14 M/mm3 (3.65-5.03); Red Cell Distribution Width 12.6 % (13.2-15.2)
[2019-06-19 16:56] LABS: Chol/HDL Ratio 4.38 %
--- NOTE | 2019-06-19 20:47 | Consultation ---
History of Present Illness Consult date: 06/19/19 Reason for Consult: Left-sided weakness Chief complaint: Left-sided weakness, syncope History of present illness: Patient is 73-year-old woman with a history of diabetes, hypertension, hyperlipidemia. Yesterday after dinner, the patient was at home in the bathroom. She had returned home from dinner with her hinduism group at the [facility]. Patient was noted to be somewhat confused upon leaving the restaurant, as she reportedly was walking towards a different table instead of walking for the exit. Upon returning home, the patient started to feel unwell, and went to the bathroom and vomited 4-5 times. After vomiting, she bent over to pick something up, and then reportedly fell to the floor. She was found by family in the bathroom, and was felt to be confused. Patient states that she recalls when family found her in the bathroom. Patient was then brought to [facility] for further evaluation. In the emergency room, patient was evaluated by telemetry neurology, and was reportedly found to have right gaze preference, and left- sided weakness. Today, her symptoms have completely resolved and she is back at baseline. She states that she takes aspirin 81 mg daily, and endorses compliance with this medication. Past History Past Medical History: diabetes, hypertension Past Surgical History: No surgical history Social history: no significant social history, lives with family Family history: no significant family history Medications and Allergies Allergies Allergy/AdvReac Type Severity Reaction Status Date / Time No Known Allergies Allergy Unverified 06/18/19 21:14 Home Medications Medication Instructions Recorded Confirmed Last Taken Type Furosemide [Lasix TAB] 20 mg PO DAILY 06/19/19 06/19/19 Unknown History Lisinopril 20 mg PO DAILY 06/19/19 06/19/19 Unknown History Omeprazole 20 mg PO DAILY 06/19/19 06/19/19 Unknown History Simvastatin 40 mg PO DAILY 06/19/19 06/19/19 Unknown History Active Meds: Active Medications Acetaminophen (Tylenol) 650 mg PO Q4H PRN PRN Reason: Pain MILD(1-3)/Fever >100.5/MAC Aspirin (Aspirin) 325 mg PO QDAY [facility] Last Admin: 06/19/19 13:32 Dose: 325 mg Documented by: Atorvastatin Calcium (Lipitor) 40 mg PO QHS [facility] Bisacodyl (Dulcolax) 10 mg SC QDAY PRN PRN Reason: Constipation Dextrose (D50w (25gm) Syringe) 0 ml IV Q30MIN PRN; Protocol PRN Reason: Hypoglycemia Furosemide (Lasix) 20 mg PO DAILY [facility] Last Admin: 06/19/19 13:32 Dose: 20 mg Documented by: Insulin Human Lispro (Humalog) 0 unit SUB-Q ACHS [facility]; Protocol Last Admin: 06/19/19 16:30 Dose: Not Given Documented by: Magnesium Hydroxide (Milk Of Magnesia) 30 ml PO Q4H PRN PRN Reason: Constipation Metoclopramide HCl (Reglan) 10 mg PO Q6H PRN PRN Reason: Nausea And Vomiting Ondansetron HCl (Zofran) 4 mg IV Q8H PRN PRN Reason: Nausea And Vomiting Pantoprazole Sodium (Protonix) 20 mg PO QDAY [facility] Last Admin: 06/19/19 13:32 Dose: 20 mg Documented by: Promethazine HCl (Phenergan) 25 mg SC Q6H PRN PRN Reason: Nausea And Vomiting Sodium Chloride (Sodium Chloride Flush Syringe 10 Ml) 10 ml IV BID [facility] Last Admin: 06/19/19 13:32 Dose: 10 ml Documented by: Sodium Chloride (Sodium Chloride Flush Syringe 10 Ml) 10 ml IV PRN PRN PRN Reason: LINE FLUSH Review of Systems All systems: negative Neurological: weakness, syncope, change in mentation Physical Examination - Vital Signs Vital Signs: Vital Signs Pulse Ox 96 06/18/19 21:05 - Physical Exam Narrative exam: Patient is alert, awake, oriented x4, follows complex commands. No dysarthria or aphasia noted. PERRL, EOMI, VF F, tongue midline, bilaterally intact to LT, no facial weakness noted. 5/5 strength in bilateral upper extremities, 4/5 in bilateral lower extremities. Bilaterally intact light touch. Bilaterally intact to FTN and HTS. 2+ reflexes throughout. - Constitutional General appearance: comfortable - EENT EENT: Present: ATNC, PERRL, mucous membranes moist, vision intact - Respiratory Respiratory: Present: lungs clear, normal breath sounds - Cardiovascular Cardiovascular: Present: regular rate, normal S1, normal S2 Extremities: Present: no clubbing, cyanosis, no inflammation - Gastrointestinal Gastrointestinal: Present: normoactive bowel sounds, soft, non-tender - Integumentary Integumentary: Present: normal - Musculoskeletal Musculoskeletal: Present: no fluid collection, no pain - Psychiatric Psychiatric: Present: mood/affect appropriate - Level of Consciousness 1a. Level of Consciousness: alert/keenly responsive - LOC Questions 1b. LOC Questions: answers both correctly - LOC Command 1c. LOC Commands: performs tasks correctly - Best Gaze 2. Best Gaze: normal - Visual 3. Visual: no visual loss - Facial Palsy 4. Facial Palsy: normal symmetrical movement - Motor Arm 5a. Motor Arm Left: no drift 5b. Motor Arm Right: no drift - Motor Leg 6a. Motor Leg Left: no drift 6b. Motor Leg Right: no drift - Limb Ataxia 7. Limb Ataxia: absent - Sensory 8. Sensory: normal - Best Language 9. Best Language: no aphasia - Dysarthria 10. Dysarthria: normal - Extinction and Inattention 11. Extinction/Inattention: no abnormality - Scoring Total Score: 0 Stroke Severity: No Stroke Symptoms Results - Laboratory Findings CBC and BMP: 06/19/19 15:49 06/18/19 21:39 Abnormal Lab Findings: Abnormal Labs 06/18/19 06/18/19 06/18/19 21:39 21:39 22:17 WBC 14.6 H Hgb 14.8 H Hct 43.7 H MCH MCHC RDW 12.7 L Seg Neuts % (Manual) 95.0 H Lymphocytes % (Manual) 4.0 L Seg Neutrophils # Man 13.9 H Lymphocytes # (Manual) 0.6 L Sodium 136 L Chloride 90.6 L Creatinine 0.6 L Glucose 254 H POC Glucose 219 H Triglycerides Cholesterol LDL Cholesterol Direct 06/19/19 06/19/19 06/19/19 06:00 08:50 11:43 WBC Hgb Hct MCH MCHC RDW Seg Neuts % (Manual) Lymphocytes % (Manual) Seg Neutrophils # Man Lymphocytes # (Manual) Sodium Chloride Creatinine Glucose POC Glucose 175 H 141 H 132 H Triglycerides Cholesterol LDL Cholesterol Direct 06/19/19 06/19/19 06/19/19 15:49 16:01 16:21 WBC 12.9 H Hgb Hct MCH 33 H MCHC 35 H RDW 12.6 L Seg Neuts % (Manual) Lymphocytes % (Manual) Seg Neutrophils # Man Lymphocytes # (Manual) Sodium Chloride Creatinine Glucose POC Glucose 143 H Triglycerides 178 H Cholesterol 206 H LDL Cholesterol Direct 140 H Assessment and Plan Patient is 73-year-old woman with a history of diabetes, hypertension, hyperlipidemia, who presents with right gaze preference, left-sided weakness, altered mental status, which is now resolved. Of note, symptoms started after the patient vomited 4-5 times yesterday evening, and reportedly lost consciousness. According the patient's clinical symptoms, it is likely that she has had a TIA, given that she was found to have left-sided weakness and right gaze preference when evaluated in the emergency room yesterday evening. Additionally, the patient likely had a syncopal event, which may have been due to orthostatic hypotension, as the patient had vomited 4-5 times prior to bending over to pick something up, after which she fell to the floor and lost consciousness. Plan: 1. TIA: - MRI brain: No acute abnormality - CTA head/neck: No significant stenosis - CT head: No acute abnormality - Echo: EF 50 to 55%, LA mildly dilated, bubble study negative. -Recommend for patient to be started on dual antiplatelet therapy with aspirin 8 1 mg daily and Plavix 75 mg daily for 30 days, after which Plavix can be stopped. Discussed risks and benefits of dual antiplatelet therapy with patient and family, and she agreed to start this at this time. - Cont. statin. LDL goal <70. Current LDL 140. - Telemetry monitoring while in house - PT/OT/ST - DVT Ppx: Recommend lovenox 2. Hypertension: - Recommend BP goal of normotension, as no stroke is noted on MRI. 3. Syncope: -Likely in setting of orthostatic hypotension, as patient vomited 4-5 times prior to bending over to pick something up after which she lost consciousness. -Check orthostatic vital signs. If found to have orthostatic hypotension, will need to be further managed by primary team. -Recommend for patient to have routine EEG as outpatient, as she states that she occasionally has tremulous episodes associated with confusion, however there is no loss of consciousness during these episodes, and they have been going on for several years. 4. Leukocytosis: -Patient found to have leukocytosis with 14.6 WBCs, and was also febrile on admission with fever of 101.6. -Urinalysis did not indicate UTI. -Recommend check chest x-ray. -Further management per primary team. -Will sign off, as I am not covering neurology service over the weekend. Please consult neurologist covering the service over the weekend for further neurologic monitoring and management. Thank you for allowing me to take part in the care of this patient. Td Garcia MD Neurology
[2019-06-19] MEDS ORDERED: PRAVASTATIN 40 MG TAB PO SCH (22:00)
[2019-06-20 05:26] LABS: INR 0.99 (0.87-1.13)
[2019-06-20 05:27] LABS: BUN/Creatinine Ratio 31; Blood Urea Nitrogen 22 mg/dL (7-17); Calcium 8.9 mg/dL (8.4-10.2); Hemolysis Index 132; Partial Thromboplastin Time 25.7 Sec. (24.2-36.6)
[2019-06-20 06:30] LABS: Hematocrit 41.5 % (30.3-42.9); Hemoglobin 14.6 gm/dl (10.1-14.3); Mean Corpuscular HGB Conc 35 % (30-34); Mean Corpuscular Volume 94 fl (79-97); Red Blood Count 4.41 M/mm3 (3.65-5.03); Red Cell Distribution Width 12.5 % (13.2-15.2)
[2019-06-20 06:36] LABS: Platelet Count 181 K/mm3 (140-440)
--- NOTE | 2019-06-20 09:19 | XRay Report ---
CHEST 2 VIEWS INDICATION: fever, leucocyotsis. COMPARISON: None FINDINGS: Support devices: None. Heart: Within normal limits. Lungs: Bronchovascular markings are prominent No acute air space or interstitial disease. Pleura: No significant pleural effusion. No pneumothorax. Additional findings: Degenerative changes thoracic spine present IMPRESSION: 1. No acute findings. Signer Name: Vinicius Smith MD Signed: 06/20/2019 9:15 AM Workstation Name: [id number]
[2019-06-20] MEDS: ASPIRIN EC 81 MG TAB PO SCH (09:39)
[2019-06-20] MEDS: FUROSEMIDE 20 MG TAB PO SCH (09:39)
[2019-06-20] MEDS: CLOPIDOGREL 75 MG TAB PO SCH (09:39)
[2019-06-20] MEDS: INSULIN LISPRO 100 UNIT/ML SUB-Q SCH ×4 (09:39→22:45)
[2019-06-20] MEDS: PANTOPRAZOLE 20 MG TAB PO SCH (09:40)
[2019-06-20 09:43] LABS: Platelet Estimate Consistent w Auto; RBC Morphology Normal; Total Cells Counted 100
--- NOTE | 2019-06-20 14:42 | Progress Note ---
Assessment and Plan / Acute TIA - MRI brain: No acute abnormality - CTA head/neck: No significant stenosis - CT head: No acute abnormality - Echo: EF 50 to 55%, LA mildly dilated, bubble study negative. - cont asp, plavix statin - PT recommended acute rehab /Syncope: -Likely vasovagal in setting of orthostatic hypotension, as she c/o vomitting prior to episode -Check orthostatic vital signs. -Neuro Recommend for patient to have routine EEG as outpatient / Hypertension Blood pressure stable. Continue routine home medications. /h/o recurrent fall - need rehab /Leukocytosis: -Patient found to have leukocytosis with 14.6 WBCs, and was also febrile on admission with fever of 101.6. -Urinalysis did not indicate UTI. -no findings on chest x-ray. -likely viral illness, cont to monitor / DVT prophylaxis Patient placed on subcutaneous heparin. /Full code status Current Visit: Yes Status: Acute Subjective Date of service: 06/20/19 Interval history: Patient seen and examined resting on bed, PT recommended Acute rehab denies any chest pain, c/o recurrent fall at home Objective - Constitutional Vitals: Vital Signs - 12hr 06/20/19 06/20/19 06/20/19 03:30 09:17 09:42 Temperature 98.6 F 98.0 F Pulse Rate 100 H 99 H Respiratory 20 18 Rate Blood Pressure 114/53 142/74 O2 Sat by Pulse 97 91 94 Oximetry General appearance: Present: no acute distress, well-nourished - EENT Eyes: PERRL, EOM intact ENT: hearing intact, clear oral mucosa Ears: bilateral: normal - Neck Neck: supple, normal ROM - Respiratory Respiratory effort: normal Respiratory: bilateral: CTA - Cardiovascular Rhythm: regular Heart Sounds: Present: S1 & S2. Absent: gallop, rub Extremities: pulses intact, No edema, normal color, Full ROM - Gastrointestinal General gastrointestinal: Present: soft, non-tender, non-distended, normal bowel sounds - Integumentary Integumentary: clear, warm, dry - Musculoskeletal Musculoskeletal: 1, strength equal bilaterally - Neurologic Neurologic: moves all extremities - Psychiatric Psychiatric: memory intact, appropriate mood/affect, intact judgment & insight - Labs CBC & Chem 7: 06/20/19 04:29 06/20/19 04:29 Labs: Abnormal lab results 0206/19/19 06/19/19 Range/Units 15:49 16:01 16:21 WBC 12.9 H (4.5-11.0) K/mm3 Hgb (10.1-14.3) gm/dl MCH 33 H (28-32) pg MCHC 35 H (30-34) % RDW 12.6 L (13.2-15.2) % Seg Neuts % (Manual) (40.0-70.0) % Lymphocytes % (Manual) (13.4-35.0) % Eosinophils % (Manual) (0.0-4.3) % Seg Neutrophils # Man (1.8-7.7) K/mm3 Lymphocytes # (Manual) (1.2-5.4) K/mm3 Monocytes # (Manual) (0.0-0.8) K/mm3 Eosinophils # (Manual) (0.0-0.4) K/mm3 Chloride (98-107) mmol/L BUN (7-17) mg/dL Glucose (65-100) mg/dL POC Glucose 143 H (70-105) Triglycerides 178 H (2-149) mg/dL Cholesterol 206 H (50-199) mg/dL LDL Cholesterol Direct 140 H (50-130) mg/dL 06/19/19 06/20/19 06/20/19 Range/Units 21:50 04:29 04:29 WBC 14.9 H (4.5-11.0) K/mm3 Hgb 14.6 H (10.1-14.3) gm/dl MCH 33 H (28-32) pg MCHC 35 H (30-34) % RDW 12.5 L (13.2-15.2) % Seg Neuts % (Manual) 78.0 H (40.0-70.0) % Lymphocytes % (Manual) 7.0 L (13.4-35.0) % Eosinophils % (Manual) 7.0 H (0.0-4.3) % Seg Neutrophils # Man 11.6 H (1.8-7.7) K/mm3 Lymphocytes # (Manual) 1.0 L (1.2-5.4) K/mm3 Monocytes # (Manual) 1.0 H (0.0-0.8) K/mm3 Eosinophils # (Manual) 1.0 H (0.0-0.4) K/mm3 Chloride 97.8 L (98-107) mmol/L BUN 22 H (7-17) mg/dL Glucose 149 H (65-100) mg/dL POC Glucose 161 H (70-105) Triglycerides (2-149) mg/dL Cholesterol (50-199) mg/dL LDL Cholesterol Direct (50-130) mg/dL 06/20/19 06/20/19 Range/Units 07:47 11:25 WBC (4.5-11.0) K/mm3 Hgb (10.1-14.3) gm/dl MCH (28-32) pg MCHC (30-34) % RDW (13.2-15.2) % Seg Neuts % (Manual) (40.0-70.0) % Lymphocytes % (Manual) (13.4-35.0) % Eosinophils % (Manual) (0.0-4.3) % Seg Neutrophils # Man (1.8-7.7) K/mm3 Lymphocytes # (Manual) (1.2-5.4) K/mm3 Monocytes # (Manual) (0.0-0.8) K/mm3 Eosinophils # (Manual) (0.0-0.4) K/mm3 Chloride (98-107) mmol/L BUN (7-17) mg/dL Glucose (65-100) mg/dL POC Glucose 150 H 167 H (70-105) Triglycerides (2-149) mg/dL Cholesterol (50-199) mg/dL LDL Cholesterol Direct (50-130) mg/dL
[2019-06-21] MEDS: INSULIN LISPRO 100 UNIT/ML SUB-Q SCH ×4 (08:00→22:06)
[2019-06-21] MEDS: ASPIRIN EC 81 MG TAB PO SCH (10:24)
[2019-06-21] MEDS: CLOPIDOGREL 75 MG TAB PO SCH (10:24)
[2019-06-21] MEDS: PANTOPRAZOLE 20 MG TAB PO SCH (10:24)
[2019-06-21] MEDS: FUROSEMIDE 20 MG TAB PO SCH (10:24)
--- NOTE | 2019-06-21 16:36 | Progress Note ---
Assessment and Plan / Acute TIA - MRI brain: No acute abnormality - CTA head/neck: No significant stenosis - CT head: No acute abnormality - Echo: EF 50 to 55%, LA mildly dilated, bubble study negative. - cont asp, plavix statin - PT recommended acute rehab /Syncope: -Likely vasovagal in setting of dehydration, as she c/o vomitting prior to episode -normal orthostatic vital signs. -Neuro Recommend for patient to have routine EEG as outpatient / Hypertension Blood pressure stable. Continue routine home medications. /h/o recurrent fall - need rehab /Leukocytosis: -Patient found to have leukocytosis with 14.6 WBCs, and was also febrile on admission with fever of 101.6. -Urinalysis did not indicate UTI. -no findings on chest x-ray. -likely viral illness, cont to monitor / DVT prophylaxis Patient placed on subcutaneous heparin. /Full code status Current Visit: Yes Status: Acute Subjective Date of service: 06/21/19 Interval history: Patient seen and examined resting on bed, PT recommended Acute rehab denies any chest pain, c/o recurrent fall at home d/c pending on placement Objective - Exam Narrative Exam: General appearance: Present: no acute distress, well-nourished - EENT Eyes: PERRL, EOM intact ENT: hearing intact, clear oral mucosa Ears: bilateral: normal - Neck Neck: supple, normal ROM - Respiratory Respiratory effort: normal Respiratory: bilateral: CTA - Cardiovascular Rhythm: regular Heart Sounds: Present: S1 & S2. Absent: gallop, rub Extremities: pulses intact, No edema, normal color, Full ROM - Gastrointestinal General gastrointestinal: Present: soft, non-tender, non-distended, normal bowel sounds - Integumentary Integumentary: clear, warm, dry - Musculoskeletal Musculoskeletal: 1, strength equal bilaterally - Neurologic Neurologic: moves all extremities - Psychiatric Psychiatric: memory intact, appropriate mood/affect, intact judgment & insight - Constitutional Vitals: Vital Signs - 12hr 06/21/19 06/21/19 06/21/19 06:01 08:12 11:00 Temperature 98.5 F 97.9 F Pulse Rate 56 L 54 L Respiratory 20 18 18 Rate Blood Pressure 130/44 Blood Pressure 116/47 [Left] O2 Sat by Pulse 94 93 Oximetry 06/21/19 12:56 Temperature 97.5 F L Pulse Rate 55 L Respiratory 18 Rate Blood Pressure 103/52 Blood Pressure [Left] O2 Sat by Pulse 98 Oximetry - Labs CBC & Chem 7: 06/20/19 04:29 06/20/19 04:29 Labs: Abnormal lab results 06/20/19 06/21/19 06/21/19 Range/Units 22:22 07:24 11:26 POC Glucose 196 H 146 H 210 H (70-105) 06/21/19 Range/Units 16:14 POC Glucose 155 H (70-105)
[2019-06-22] MEDS: INSULIN LISPRO 100 UNIT/ML SUB-Q SCH (08:00)
[2019-06-22] MEDS: CLOPIDOGREL 75 MG TAB PO SCH (10:33)
[2019-06-22] MEDS: FUROSEMIDE 20 MG TAB PO SCH (10:33)
[2019-06-22] MEDS: PANTOPRAZOLE 20 MG TAB PO SCH (10:33)
[2019-06-22] MEDS: ASPIRIN EC 81 MG TAB PO SCH (10:33)
[2019-06-22 12:07] VITALS: BP 142/76
--- NOTE | 2019-06-22 13:33 | Discharge Summary ---
Providers - Providers Date of Admission: 06/19/19 00:51 Date of discharge: 06/22/19 Attending physician: MARCELA GOLDEN 06/19/19 03:25 Occupational Therapy Evaluate and Treat [CONS] Routine Comment: Reason For Exam: Neuro deficits Physical Therapy Evaluation and Treat [CONS] Routine Comment: Reason For Exam: Neuro deficits 06/19/19 03:31 Speech Therapy Evaluation and Treat [CONS] Routine Reason For Exam: swallow eval 06/19/19 11:28 Consult to Physician [CONS] Routine Comment: Consulting Provider: JEAN ALLEN Physician Instructions: Reason For Exam: CVA vs syncope Primary care physician: DIONICIO GUIDRY Hospitalization Condition: Stable Hospital course: Discharge diagnosis: / Acute TIA - presented with leftsided weakness, possible confusion with AMS - which resolved following admission -CVA ruled out - MRI brain: No acute abnormality, no cva - CTA head/neck: No significant stenosis - CT head: No acute abnormality - Echo: EF 50 to 55%, LA mildly dilated, bubble study negative. - cont asp, plavix statin - PT recommended acute rehab /Acute encephalopathy on admission - likely from TIA, stroke workup was negative /Syncope: -Likely vasovagal in setting of dehydration, as she c/o vomitting prior to episode -normal orthostatic vital signs. -Neuro Recommend for patient to have routine EEG as outpatient / Hypertension Blood pressure stable. Continue routine home medications. /h/o recurrent fall - need rehab /Leukocytosis: -Patient found to have leukocytosis with 14.6 WBCs, and was also febrile on admission with fever of 101.6. -Urinalysis did not indicate UTI. -no findings on chest x-ray. -likely viral illness, cont to monitor / DVT prophylaxis Patient placed on subcutaneous heparin. /Full code status Current Visit: Yes Status: Acute Disposition: DC-01 TO HOME OR SELFCARE Time spent for discharge: 34 minutes Core Measure Documentation - Palliative Care Palliative Care/ Comfort Measures: Not Applicable - Core Measures Any of the following diagnoses?: none Exam - Physical Exam Narrative exam: General appearance: Present: no acute distress, well-nourished - EENT Eyes: PERRL, EOM intact ENT: hearing intact, clear oral mucosa Ears: bilateral: normal - Neck Neck: supple, normal ROM - Respiratory Respiratory effort: normal Respiratory: bilateral: CTA - Cardiovascular Rhythm: regular Heart Sounds: Present: S1 & S2. Absent: gallop, rub Extremities: pulses intact, No edema, normal color, Full ROM - Gastrointestinal General gastrointestinal: Present: soft, non-tender, non-distended, normal bowel sounds - Integumentary Integumentary: clear, warm, dry - Musculoskeletal Musculoskeletal: 1, strength equal bilaterally - Neurologic Neurologic: moves all extremities - Psychiatric Psychiatric: memory intact, appropriate mood/affect, intact judgment & insight - Constitutional Vitals: Temp Pulse Resp BP Pulse Ox 98.3 F 52 L 18 142/76 96 06/22/19 12:03 06/22/19 12:03 06/22/19 12:03 06/22/19 12:03 06/22/19 12:03 Plan Activity: fall precautions Weight Bearing Status: Non-Weight Bearing Diet: low fat Special Instructions: record daily BP diary Follow up with: PRIMARY CARE, [Referring] - 3-5 Days Prescriptions: Aspirin EC [Halfprin EC] 81 mg PO QDAY #30 tablet Clopidogrel [Plavix] 75 mg PO QDAY #30 tablet
== END 2019-06-22 18:37 | disposition home or self-care (01) ==
LOC: ED 20:58 → INTOOBSV 06-19 00:51 → 4A 06-19 00:51
PROVIDERS: ADMIT Internal Medicine Geriatric Medicine; ATTEND Internal Medicine
DX: I63.9 Cerebral infarction, unspecified (principal); I10 Essential (primary) hypertension; R55 Syncope and collapse; R41.82 Altered mental status, unspecified; D72.829 Elevated white blood cell count, unspecified; M62.81 Muscle weakness (generalized); E11.9 Type 2 diabetes mellitus without complications; Z79.82 Long term (current) use of aspirin
CPT/HCPCS: 36415; 70450; 70496; 70498; 70551; 71046; 80048; 80061; 80307; 81001; 82550; 82553; 82962; 84484; 85007; 85025; 85027; 85610; 85670; 85730; 87040; 92610; 93005; 93010; 93306; 93880; 96361; 96374; 97110; 97112; 97116; 97161; 97165; 99291; A9270; G0378; J2060; J7030; Q9967; 80320; 96365; G0480; J1815

== ENCOUNTER 2019-08-19 16:38 | Emergency (ER) | payer MEDICARE ==
--- NOTE | 2019-08-19 17:21 | Event Note ---
ED Screening Note Date of service: 08/19/19 ED Screening Note: This is a 74-year-old female who presents with weakness. Patient states she fell 4 times today at home. Past medical history of arthritis, diabetes, and hypertension. She reports nausea with associated symptoms. She denies chest pain, shortness of breath, This initial assessment/diagnostic orders/clinical plan/treatment(s) is/are subject to change based on patients health status, clinical progression and re- assessment by fellow clinical providers in the ED. Further treatment and workup at subsequent clinical providers discretion. Patient/guardian urged not to elope from the ED as their condition may be serious if not clinically assessed and managed. Initial orders include: Labs EKG CT of head
--- NOTE | 2019-08-19 18:10 | Cat Scan Report ---
CT head/brain wo con INDICATION / CLINICAL INFORMATION: 74 years Female; weakness, s/p fall. TECHNIQUE: Routine CT head without contrast. All CT scans at this location are performed using CT dos e reduction for ALARA by means of automated exposure control. 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 Old, small branch PICA infarct is suggested laterally in the right cerebellar hemisphere. Otherwise, no acute hemorrhage, mass effect, midline shift, hydrocephalus, or acute, large territoria l infarct. Mild cerebral and cerebellar atrophy. There are minimal areas of decreased attenuation in the white matter of the cerebral hemispheres. The se are nonspecific findings and may be related to microangiopathy (hypertension, diabetes, atheroscle rosis), given the patient's age. It might be difficult to evaluate for small areas of ischemia withou t diffusion imaging by MRI. CRANIOCERVICAL JUNCTION: No significant abnormality. ORBITS: No significant abnormality of visualized orbits. SINUSES / MASTOIDS: There is partial opacification of the ethmoids on the right. ADDITIONAL FINDINGS: No significant atherosclerotic disease appreciated. IMPRESSION: 1. No focal mass, hemorrhage, hydrocephalus, or acute, large territorial infarct. Signer Name: Ez Donahue MD, III Signed: 08/19/2019 6:06 PM Workstation Name: [id number]
[2019-08-19] MEDS ORDERED: ONDANSETRON 4 MG ODT TAB ONE (19:40)
[2019-08-19] MEDS ORDERED: ONDANSETRON 4 MG ODT TAB PO ONE (19:41)
[2019-08-19 19:44] LABS: Basophils % (Auto) 0.4 % (0.0-1.8); Eosinophils # (Auto) 0.1 K/mm3 (0.0-0.4); Eosinophils % (Auto) 1.1 % (0.0-4.3); Hematocrit 42.6 % (30.3-42.9); Hemoglobin 14.6 gm/dl (10.1-14.3); Lymphocytes # (Auto) 2.4 K/mm3 (1.2-5.4); Lymphocytes % (Auto) 24.1 % (13.4-35.0); Mean Corpuscular HGB Conc 34 % (30-34); Mean Corpuscular Volume 93 fl (79-97); Monocytes % (Auto) 9.9 % (0.0-7.3); Platelet Count 244 K/mm3 (140-440); Red Blood Count 4.57 M/mm3 (3.65-5.03); Red Cell Distribution Width 12.8 % (13.2-15.2)
[2019-08-19 20:03] LABS: Alanine Aminotransferase 14 units/L (7-56); Albumin 4.4 g/dL (3.9-5); BUN/Creatinine Ratio 40; Blood Urea Nitrogen 24 mg/dL (7-17); Calcium 9.9 mg/dL (8.4-10.2); Hemolysis Index 29
[2019-08-19 20:15] LABS: INR 0.97 (0.87-1.13)
[2019-08-19 20:16] LABS: Partial Thromboplastin Time 27.5 Sec. (24.2-36.6)
[2019-08-19] MEDS ORDERED: POTASSIUM CHLORIDE ER 20 MEQ TAB PO ONE (21:45)
--- NOTE | 2019-08-19 22:29 | Emergency Department Report ---
HPI - General Chief Complaint: Weakness Time Seen by Provider: 08/19/19 17:17 - HPI HPI: 74-year-old female presents to the emergency department with the complaint of a fall and hitting her head this morning, as well as some nausea and vomiting later in the day. The patient has been having multiple episodes over the past few months in which she feels weak and shaky getting out of bed. The patient was here and admitted in May for similar symptoms and for a stroke work-up but no signs of CVA were found. Patient says that she had a fall this morning around 5 AM and hit her head on a door handle. No loss of consciousness. Patient walks with a walker. She has a past medical history of arthritis, diabetes, hypertension. ED Past Medical Hx - Past Medical History Hx Hypertension: Yes Hx Diabetes: Yes Hx Arthritis: Yes Hx Seizures: No Hx Dementia: No Hx HIV: No - Social History Smoking Status: Never Smoker Substance Use Type: None - Medications Home Medications: Home Medications Medication Instructions Recorded Confirmed Last Taken Type Lisinopril 20 mg PO DAILY 06/19/19 06/19/19 Unknown History Omeprazole 20 mg PO DAILY 06/19/19 06/19/19 Unknown History Simvastatin 40 mg PO DAILY 06/19/19 06/19/19 Unknown History Aspirin EC [Halfprin EC] 81 mg PO QDAY #30 tablet 06/22/19 Unknown Rx Clopidogrel [Plavix] 75 mg PO QDAY #30 tablet 06/22/19 Unknown Rx ED Review of Systems ROS: Stated complaint: HEAD INJURY FELL 4TIMES Other details as noted in HPI Comment: All other systems reviewed and negative Constitutional: denies: chills, fever Eyes: denies: eye pain, vision change ENT: denies: ear pain, throat pain Respiratory: denies: cough, shortness of breath Cardiovascular: denies: chest pain, palpitations Gastrointestinal: nausea, vomiting Genitourinary: denies: dysuria, discharge Musculoskeletal: denies: back pain, arthralgia Skin: denies: rash, lesions Neurological: headache. denies: numbness, paresthesias Physical Exam - Physical Exam Vital Signs: Vital Signs 08/19/19 16:57 Temperature 97.8 F Pulse Rate 91 H Respiratory 18 Rate Blood Pressure 108/55 O2 Sat by Pulse 95 Oximetry Physical Exam: GENERAL: The patient is well-developed well-nourished. HENT: Normocephalic. Atraumatic. Patient has moist mucous membranes. EYES: Extraocular motions are intact. NECK: Supple. Trachea is midline. CHEST/LUNGS: Clear to auscultation. There is no respiratory distress noted. HEART/CARDIOVASCULAR: Regular. There is no tachycardia. ABDOMEN: Abdomen is soft, nontender. Patient has normal bowel sounds. There is no abdominal distention. SKIN: Skin is warm and dry. NEURO: The patient is awake, alert, and oriented. The patient is cooperative. The patient has no focal neurologic deficits. Normal speech. Cranial nerves II through XII grossly intact. No pronator drift. No dysmetria. MUSCULOSKELETAL: There is no tenderness or deformity. There is no limitation range of motion. There is no evidence of acute injury. ED Course Vital Signs 08/19/19 16:57 Temperature 97.8 F Pulse Rate 91 H Respiratory 18 Rate Blood Pressure 108/55 O2 Sat by Pulse 95 Oximetry ED Medical Decision Making - Lab Data Result diagrams: 08/19/19 19:05 08/19/19 19:05 - EKG Data -: EKG Interpreted by [facility] EKG shows normal: sinus rhythm (Sinus arrhythmia with PVCs), axis, intervals, QRS complexes, ST-T waves Rate: normal - EKG Data When compared to previous EKG there are: no significant change Interpretation: unchanged when compared t (06/18/19) - Radiology Data Radiology results: report reviewed CT head/brain wo con INDICATION / CLINICAL INFORMATION: 74 years Female; weakness, s/p fall. TECHNIQUE: Routine CT head without contrast. All CT scans at this location are performed using CT dose reduction for ALARA by means of automated exposure control. 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 Old, small branch PICA infarct is suggested laterally in the right cerebellar hemisphere. Otherwise, no acute hemorrhage, mass effect, midline shift, hydrocephalus, or acute, large territorial infarct. Mild cerebral and cerebellar atrophy. There are minimal areas of decreased attenuation in the white matter of the cerebral hemispheres. These are nonspecific findings and may be related to microangiopathy (hypertension, diabetes, atherosclerosis), given the patient's age. It might be difficult to evaluate for small areas of ischemia without diffusion imaging by MRI. CRANIOCERVICAL JUNCTION: No significant abnormality. ORBITS: No significant abnormality of visualized orbits. SINUSES / MASTOIDS: There is partial opacification of the ethmoids on the right. ADDITIONAL FINDINGS: No significant atherosclerotic disease appreciated. IMPRESSION: 1. No focal mass, hemorrhage, hydrocephalus, or acute, large territorial infarct. - Medical Decision Making This patient presents to the emergency department with complaint of falling this morning, hitting her head without loss of consciousness, and having some nausea with vomiting later in the afternoon. Since being in the emergency department the patient is awake, alert, oriented and appropriate. She does not have any focal, motor or sensory deficits and her cranial nerves are intact. CT scan of the head did not show any skull fracture, brain bleed, ischemia, or any other acute process. Patient's vital signs have been stable throughout her ED course. Labs have been unremarkable including CBC, metabolic panel and coags. Patient was reevaluated multiple times over multiple hours and she has remained stable. Patient walks with a walker at baseline. The patient was able to ambulate around the emergency department using a walker and both feels and appears stable. For all these reasons the patient appears safe for discharge home at this time. She has been instructed to follow-up with her primary care physician in the next few days, but to return to the emergency department with any worsening of her symptoms or any acute distress. Critical Care Time: No Critical care attestation.: If time is entered above; I have spent that time in minutes in the direct care of this critically ill patient, excluding procedure time. ED Disposition Clinical Impression: Fall Qualifiers: Encounter type: initial encounter Qualified Code(s): W19.XXXA - Unspecified fall, initial encounter Nausea & vomiting Qualifiers: Vomiting type: unspecified Vomiting Intractability: non-intractable Qualified Code(s): R11.2 - Nausea with vomiting, unspecified Minor head injury without loss of consciousness Qualifiers: Encounter type: initial encounter Qualified Code(s): S09.90XA - Unspecified injury of head, initial encounter Disposition: DC- TO HOME OR SELFCARE Is pt being admited?: No Condition: Stable Instructions: Minor Head Injury (ED), Fall Prevention (ED) Additional Instructions: Please follow-up with your primary care physician in the next few days. Return to the emergency department with any further falls, any instability, worsening of your symptoms, or with any acute distress. Referrals: PRIMARY CARE, [Primary Care Provider] - 2-3 Days Time of Disposition: 23:14
[2019-08-20 00:30] VITALS: BP 107/77
== END 2019-08-20 00:28 | disposition home or self-care (01) ==
LOC: ED 16:38
DX: S09.90XA Unspecified injury of head, initial encounter (principal); R11.2 Nausea with vomiting, unspecified; I10 Essential (primary) hypertension; E11.9 Type 2 diabetes mellitus without complications; M13.89 Other specified arthritis, multiple sites; Z79.899 Other long term (current) drug therapy; W19.XXXA Unspecified fall, initial encounter; Y93.89 Activity, other specified; Y92.89 Other specified places as the place of occurrence of the external cause; Y99.8 Other external cause status
CPT/HCPCS: 36415; 70450; 80053; 82962; 83690; 85025; 85610; 85730; 93005; Q0162